=== PATIENT | female | born 1995 | race Hispanic/Latino ===

== ENCOUNTER 2023-10-30 13:41 | Emergency (ER) | payer BC ==
[~2023-10-30] VITALS: Ht 167.6 cm; Wt 63.5 kg
[2023-10-30 14:05] VITALS: BP 123/81; PULSE 94; RESP 16; TEMP 97.9; O2SAT 97
[2023-10-30] MEDS ORDERED: TETRACAINE HCL ONE (14:14)
[2023-10-30] MEDS ORDERED: FUL-GLO OP ONE (14:14)
[2023-10-30 15:03] VITALS: BP 116/74; PULSE 84; RESP 16; O2SAT 97
== END 2023-10-30 15:05 | disposition home or self-care (01) ==
LOC: ER 13:41
DX: T15.92XA Foreign body on external eye, part unspecified, left eye, initial encounter (principal); W44.8XXA Other foreign body entering into or through a natural orifice, initial encounter; Y93.89 Activity, other specified; Y92.89 Other specified places as the place of occurrence of the external cause; Y99.8 Other external cause status
CPT/HCPCS: 99281; 99283